=== PATIENT | female | born 1980 | race Caucasian/White ===

== ENCOUNTER 2017-12-27 12:35 | Emergency (ER) | payer OTHER ==
[~2017-12-27] VITALS: Ht 170.2 cm; Wt 70.4 kg
[2017-12-27 13:17] VITALS: BP 112/67
== END 2017-12-27 15:21 | disposition left against medical advice (07) ==
LOC: EME 12:35
DX: Z11.1 Encounter for screening for respiratory tuberculosis (principal); Z53.21 Procedure and treatment not carried out due to patient leaving prior to being seen by health care provider